=== PATIENT | female | born 2000 | race Caucasian/White ===

== ENCOUNTER 2021-02-10 08:24 | Emergency (ER) | payer OTHER, SELFPAY ==
[2021-02-10 08:29] VITALS: BP 150/107; PULSE 68; RESP 15; TEMP 36.6; O2SAT 100
--- NOTE | 2021-02-10 09:22 | ED.DENTAL ---
HPI - Dental/Oral General Chief complaint: Dental/Oral Stated complaint: dental pain Time Seen by Provider: 02/10/21 08:36 Source: patient Mode of arrival: ambulatory Limitations: no limitations History of Present Illness HPI Narrative: This is 20 year old female with history of poor dentition who presents for evaluation of right upper dental pain. She reports long standing pain to her right upper molars. She takes antibiotics intermittently but she has not ever been able to get into a dentist. Her pain worsened over the past 4 days. She denies fever or chills. She has been taking tylenol for pain. She states she is normal prescribed ibuprofen and amoxicillin. Location: Tooth # (2,3) Related Data Allergies Allergy/AdvReac Type Severity Reaction Status Date / Time No Known Allergies Allergy Verified 02/10/21 08:59 Review of Systems Review of Systems: All systems reviewed & are unremarkable except as noted in HPI and below Constitutional: Constitutional: Denies chills and Denies fever(s) ENT: Denies dysphagia and Reports mouth pain PMFSH Past Medical History Medical History (Updated 02/10/21 @ 09:34 by Kaila Cook MD) Anxiety Depression Surgical History Surgical History (Updated 02/10/21 @ 09:22 by Kaila Cook MD) No pertinent past surgical history Social History Social History (Updated 02/10/21 @ 09:23 by Kaila Cook MD) Smoking packs per day: 0.5 Smoking cigarettes per day: 10.0 Smoking status: Current every day smoker Exam Const: General: no acute distress and alert Orientation/consciousness: patient oriented x3 HENMT: Ears: external ears normal Face and sinus: sinuses nontender and face symmetric Mouth: Yes lip normal, Yes tongue normal, Yes oropharynx normal and Yes moist mucous membranes Teeth and gingiva: abnormal tooth and associated gingiva (right upper at teeth 2,3 surround gingiva erythema, no drainage, no fluctan) and poor dentition Eyes: EOM: EOMs intact bilaterally Resp: Effort & Inspection: normal respiratory effort Skin: General skin exam: normal color Rashes: no rashes Neuro: General: patient oriented x3, moves all extremities and CN's II-XI intact bilaterally Psych: Mental Status: mental status grossly normal Affect: normal affect Course Reevaluation(s) Reevaluation #1: I discussed with patient that she will can try to be seen at Dental school. She will be given dose of toradol. Date: 02/10/21 Time: 09:32 Vital Signs Vital signs: Vital Signs Temperature 97.9 F 02/10/21 08:29 Pulse Rate 68 02/10/21 08:29 Respiratory Rate 15 02/10/21 08:29 Blood Pressure 150/107 H 02/10/21 08:29 Pulse Oximetry 100 02/10/21 08:29 Temperature 97.9 F 02/10/21 08:29 Pulse Rate 68 02/10/21 08:29 Respiratory Rate 15 02/10/21 08:29 Blood Pressure 150/107 H 02/10/21 08:29 Pulse Oximetry 100 02/10/21 08:29 Discharge Plan Discharge Clinical Impression: Dental abscess, Dental caries Patient Disposition: Home, Self-Care Condition: Stable Instructions: Antibiotic Form, Dental Abscess (ED) Additional Instructions: You need to be seen by a dentist. I recommend you look into call one of the local dental schools. You can all try [facility] at [phone] to make an appointment. Prescriptions: New amoxicillin-pot clavulanate [Augmentin] 875-125 mg tablet 1 tablet PO Q12H Qty: 20 RF: 0 ibuprofen 800 mg tablet 800 mg PO Q6H PRN (Reason: pain) Qty: 10 RF: 0 Follow-up/Referrals: Solo,OLIVIA Quan [Primary Care Provider] - Stand Alone Forms: Work/School Release IP
[2021-02-10] MEDS: KETOROLAC (*BKC) 60 MG/2 ML VIAL IM (09:34)
== END 2021-02-10 09:55 | disposition home or self-care (01) ==
PROVIDERS: Emergency Provider General Practice; PCP Physician Assistant
DX: K04.7 Periapical abscess without sinus (principal); K02.9 Dental caries, unspecified; F17.210 Nicotine dependence, cigarettes, uncomplicated
CPT/HCPCS: 96372; 99283; J1885

== ENCOUNTER 2021-02-26 10:56 | Emergency (ER) | payer OTHER, SELFPAY ==
[2021-02-26] VITALS (11 sets, daily range): BP systolic 100–134; BP diastolic 52–91; PULSE 60–96; RESP 12–18; TEMP 36.1; O2SAT 97–100
--- NOTE | ~2021-02-26 | XR_ITS ---
EXAMINATION: XR knee RT 3V DATE: 02/26/2021 11:55 INDICATION: Right knee pain TECHNIQUE: Three views of the right knee were obtained. COMPARISON: None. FINDINGS: Alignment is normal. No fracture or osteochondral lesion. Joint spaces are normal with no e rosions. No joint effusion/synovitis. Soft tissues are unremarkable. IMPRESSION: 1. No acute osseous abnormality. Reviewed, dictated and finalized at location A.
--- NOTE | 2021-02-26 11:35 | ED.LOWEXIN ---
HPI - Extremity Injury (Lower) General Chief Complaint: Extremity Injury, Lower Stated Complaint: right knee pain Time Seen by Provider: 02/26/21 11:06 History of Present Illness HPI Narrative: Chronic right knee pain worsened after a fall on roller skates a couple of days ago. She reports circumferential pain from the tibial tuberosity to the top of the patella. She reports that she had an MRI about 1 year ago that showed something was torn. She was supposed to get knee injection. She never followed up. She has pain with movement and bearing weight. Related Data Home Medications Medication Instructions Recorded Confirmed Zoloft 02/26/21 albuterol mcg INHALATION 02/26/21 epinephrine [Epi E-Z Pen] 0.3 mg IM Q5-15M PRN 02/26/21 lithium carbonate 02/26/21 Allergies Allergy/AdvReac Type Severity Reaction Status Date / Time No Known Allergies Allergy Verified 02/26/21 11:03 Review of Systems Review of Systems: All systems reviewed & are unremarkable except as noted in HPI and below Constitutional: Constitutional: Denies fever(s) and Denies weakness ENT: Reports system reviewed and no additional complaints, except as documented Cardiovascular: Cardiovascular: Reports no additional cardiovascular complaints Respiratory: Respiratory: Reports no additional respiratory complaints Musculoskeletal: Musculoskeletal: Denies back pain Neurologic: Denies numbness and Denies weakness [facility] Past Medical History Medical History Anxiety Depression Surgical History Surgical History No pertinent past surgical history Social History Social History Smoking packs per day: 0.5 Smoking cigarettes per day: 10.0 Smoking status: Current every day smoker Gender identity (if verbalized by the patient): Female Exam Const: General: no acute distress and alert Orientation/consciousness: patient oriented x3 HENMT: Head: normal to inspection Neck: Neck: normal visual inspection Resp: Effort & Inspection: normal respiratory effort Cardio: Other: 2 + right popliteal and DP pulses Skin: General skin exam: normal color Rashes: no rashes Wounds: no wounds Neuro: General: patient oriented x3, moves all extremities and no focal motor deficits Speech: normal speech Gait exam (Neuro): Normal gait present Extrem: Other: circumferential joint line tenderness Course Vital Signs Vital signs: Vital Signs Temperature 36.1 C L 02/26/21 11:01 Pulse Rate 96 02/26/21 11:01 Respiratory Rate 18 02/26/21 11:01 Blood Pressure 132/91 H 02/26/21 11:01 Pulse Oximetry 97 02/26/21 11:01 Temperature 36.1 C L 02/26/21 11:01 Pulse Rate 96 02/26/21 11:01 Respiratory Rate 18 02/26/21 11:01 Blood Pressure 132/91 H 02/26/21 11:01 Pulse Oximetry 97 02/26/21 11:01 MDM - Extremity Injury (Lower) MDM Narrative Medical decision making narrative: Chronic pain. It sounds like she may have had a torn meniscus. Negative x-ray. I will try nonnarcotic pain control. Differential Diagnosis Differential diagnosis: Likely acute internal derangement of knee Medical Records Attestation: I reviewed the patient's medical records. Imaging Data Radiologist's impression: ITS Impressions Knee X-Ray 02/26/21 11:59 IMPRESSION: 1. No acute osseous abnormality. Discharge Plan Discharge Clinical Impression: Knee pain, right Qualifiers: Chronicity: unspecified Qualified Code(s): M25.561 - Pain in right knee Patient Disposition: Home, Self-Care Condition: Stable Instructions: Knee Pain (ED) Prescriptions: New naproxen 500 mg tablet 500 mg PO BID PRN (Reason: pain) Qty: 60 RF: 0 No Action albuterol 90 mcg/actuation Aerosol INHALATION RF: 0 epinephrine [Epi E-Z Pen] 0.3 mg/0.3 mL Auto-Injector
[2021-02-26] MEDS: KETOROLAC (*BKC) 60 MG/2 ML VIAL IM (13:11)
== END 2021-02-26 13:26 | disposition home or self-care (01) ==
PROVIDERS: Emergency Provider Emergency Medicine; PCP Physician Assistant
DX: M25.561 Pain in right knee (principal); F41.9 Anxiety disorder, unspecified; F32.9 Major depressive disorder, single episode, unspecified; F17.210 Nicotine dependence, cigarettes, uncomplicated; V00.121A Fall from non-in-line roller-skates, initial encounter; Y93.51 Activity, roller skating (inline) and skateboarding
CPT/HCPCS: 73562; 96372; 99283; J1885

== ENCOUNTER 2021-03-08 11:27 | Emergency (ER) | payer OTHER, SELFPAY ==
[2021-03-08 12:01] VITALS: BP 139/88; PULSE 88; RESP 16; TEMP 36.4; O2SAT 100
--- NOTE | 2021-03-08 12:36 | ED.GENADULT ---
HPI - General Adult General Chief complaint: Dental/Oral Stated complaint: My tooth Time Seen by Provider: 03/08/21 12:34 History of Present Illness HPI narrative: left upper dental pain x 2 days. Sensitivity to cold. no fevers or trouble swallowing or any other sxs. Admits to previous hx of similar sxs due to dental infection. Has an appt to see dentist next week. Denies any possibility of Related Data Home Medications Medication Instructions Recorded Confirmed Zoloft 02/26/21 albuterol mcg INHALATION 02/26/21 epinephrine [Epi E-Z Pen] 0.3 mg IM Q5-15M PRN 02/26/21 lithium carbonate 02/26/21 Allergies Allergy/AdvReac Type Severity Reaction Status Date / Time cat dander Allergy Unknown Verified 03/08/21 12:01 SEAFOOD Allergy Unknown Uncoded 03/08/21 12:01 Review of Systems Constitutional: Constitutional: Reports as per HPI, Denies fever(s), Denies night sweats and Denies weakness ENT: Comments: See HPI for dental pain Cardiovascular: Cardiovascular: Denies chest pain, Denies edema, Denies leg edema, Denies dyspnea and Denies orthopnea Respiratory: Respiratory: Denies cough and Denies dyspnea Gastrointestinal: Gastrointestinal: Denies abdominal pain, Denies constipation, Denies diarrhea, Denies nausea and Denies vomiting Musculoskeletal: Musculoskeletal: Denies abnormal gait, Denies back pain, Denies numbness and Denies tingling Neurologic: Denies Abnormal speech present, Denies abnormal gait, Denies numbness, Denies tingling and Denies weakness Psychiatric: Psychiatric: Denies homicidal ideation and Denies suicidal ideation [facility] Past Medical History Medical History Anxiety Depression Surgical History Surgical History No pertinent past surgical history Social History Social History Smoking packs per day: 0.5 Smoking cigarettes per day: 10.0 Smoking status: Current every day smoker Gender identity (if verbalized by the patient): Female Exam Const: General: cooperative, healthy appearing, comfortable, no acute distress, well developed, alert, awake and Physically active Orientation/consciousness: patient oriented x3 HENMT: Head: normal to inspection, normocephalic and atraumatic Ears: external ears normal General nose exam: Normal external nose present Teeth image: 1. Dental caries of teeth 1, 2 and 3. Surrounding gingiva is slightly edematous and TTP without any appreciable abscess Eyes: Pupils: Equal, round and reactive pupils present EOM: EOMs intact bilaterally Neck: Neck: normal visual inspection Chest: Chest palpation & inspection: normal inspection of the chest and no tenderness Resp: Effort & Inspection: normal respiratory effort and able to speak in complete sentences Auscultation: clear to auscultation bilaterally Cardio: Rate: regular rate Rhythm: regular rhythm GI: Inspection: normal to inspection GI Palp: No abdominal tenderness : General: Yes no CVA tenderness Back/Spine/Pelvis: Back: no CVA tenderness Skin: General skin exam: normal color and no rashes or lesions noted Lesions: no lesions Neuro: General: patient oriented x3, no focal motor deficits and CN's II-XI intact bilaterally Cranial nerves: Yes Equal, round and reactive pupils present Speech: No Abnormal speech present Extrem: General: normal to inspection and full ROM Psych: Appearance: grossly normal and well kempt Mental Status: mental status grossly normal Speech and movement: Normal speech and movement present Affect: normal affect Thought process: Normal thought process present Course Vital Signs Vital signs: Vital Signs Temperature 36.4 C L 03/08/21 12:01 Pulse Rate 88 03/08/21 12:01 Respiratory Rate 16 03/08/21 12:01 Blood Pressure 139/88 03/08/21 12:01 Pulse Oximetry 100
--- NOTE | 2021-03-08 12:55 | PC.NURSE ---
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 PA informed states he will be in shortly.
--- NOTE | 2021-03-08 13:05 | PC.NURSE ---
OLIVIA [place] at bedside.
[2021-03-08] MEDS: KETOROLAC 30 MG/ML VIAL (*BKC) IM (13:14)
--- NOTE | 2021-03-08 13:15 | PC.NURSE ---
Pt medicated per provider order, verbalized understanding, awaiting d/c.
[2021-03-08 13:20] VITALS: BP 118/75; PULSE 72; RESP 15; O2SAT 100
== END 2021-03-08 13:20 | disposition home or self-care (01) ==
PROVIDERS: Emergency Provider Emergency Medicine; PCP Physician Assistant
DX: K04.7 Periapical abscess without sinus (principal); K02.9 Dental caries, unspecified; F41.9 Anxiety disorder, unspecified; F32.9 Major depressive disorder, single episode, unspecified; F17.210 Nicotine dependence, cigarettes, uncomplicated
CPT/HCPCS: 96372; 99283; J1885

== ENCOUNTER 2021-03-16 23:41 | Emergency (ER) | payer OTHER, SELFPAY ==
[2021-03-16 23:51] VITALS: BP 139/108; PULSE 94; RESP 18; TEMP 36.8; O2SAT 97
[2021-03-17] MEDS: methylPREDNISolone SOD SUCC 125 MG VIAL IV PUSH (00:11)
[2021-03-17] MEDS: FAMOTIDINE 20 MG/2 ML VIAL IV PUSH (00:11)
[2021-03-17 00:16] VITALS: BP 138/86; PULSE 86; RESP 17; O2SAT 98
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
[2021-03-17 00:52] VITALS: BP 128/76; PULSE 76; RESP 16; O2SAT 98
[2021-03-17 01:05] VITALS: PULSE 76; RESP 18; O2SAT 100
== END 2021-03-17 01:08 | disposition home or self-care (01) ==
PROVIDERS: Emergency Provider Emergency Medicine; PCP Physician Assistant
DX: T78.40XA Allergy, unspecified, initial encounter (principal); F41.9 Anxiety disorder, unspecified; F32.9 Major depressive disorder, single episode, unspecified; F17.210 Nicotine dependence, cigarettes, uncomplicated; Z91.013 Allergy to seafood
CPT/HCPCS: 96374; 96375; 99284; J2930

== ENCOUNTER 2021-04-13 17:01 | Emergency (ER) | payer OTHER, SELFPAY ==
[2021-04-13 17:03] VITALS: BP 140/102; PULSE 90; RESP 18; TEMP 36.6; O2SAT 100
--- NOTE | 2021-04-13 17:32 | ED.DENTAL ---
HPI - Dental/Oral General Chief complaint: Dental/Oral Stated complaint: TOOTHACHE Time Seen by Provider: 04/13/21 17:12 Source: patient Mode of arrival: ambulatory Limitations: no limitations History of Present Illness HPI Narrative: Patient is a 20 year old female who presents complaining of right upper dental pain x 1 day. She has been seen for same in the past. She reports pain started earlier today. She reports taking ibuprofen without relief. She reports that she has appointment with dentist for extraction next week. She denies other complaints at this time. MD Complaint: tooth pain Related Data Home Medications Medication Instructions Recorded Confirmed Zoloft 02/26/21 albuterol mcg INHALATION 02/26/21 epinephrine [Epi E-Z Pen] 0.3 mg IM Q5-15M PRN 02/26/21 lithium carbonate 02/26/21 Allergies Allergy/AdvReac Type Severity Reaction Status Date / Time cat dander Allergy Unknown Verified 04/13/21 17:06 pork derived (porcine) Allergy Rash Verified 04/13/21 17:06 SEAFOOD Allergy Unknown Uncoded 03/08/21 12:01 Review of Systems Review of Systems: Narrative: CONSTITUTIONAL: Denies fever, chills, or sweats. EYES: Denies visual changes, redness, or discharge. ENT: Denies rhinorrhea, congestion, sore throat, or otalgia. Reports right upper dental pain CARDIOVASCULAR: Denies chest pain, palpitations, or edema. RESPIRATORY: Denies cough or dyspnea. GASTROINTESTINAL: Denies abdominal pain, nausea, vomiting, or diarrhea. GENITOURINARY: Denies dysuria or hematuria. SKIN: Denies rash or itching. MUSCULOSKELETAL: Denies back pain, joint pain, or myalgia. NEUROLOGIC: Denies headache, numbness, dizziness, or weakness. PSYCHIATRIC: Denies anxiety or depression. [facility] Past Medical History Medical History Anxiety Depression Surgical History Surgical History No pertinent past surgical history Social History Social History (Updated 04/13/21 @ 17:35 by SUNIL Gillil[place]) Smoking packs per day: 0.5 Smoking cigarettes per day: 10.0 Smoking status: Current every day smoker Alcohol intake: never Substance use: never Gender identity (if verbalized by the patient): Female Comments At the time of signature, I have reviewed and agree with nursing past medical, surgical, social, and family history unless otherwise noted. Please see nursing chart for further information. There is no relevant family history pertinent to the presenting complaint. Exam Narrative: Exam Narrative: GENERAL: Well-appearing, well-nourished, and in no acute distress. HEAD: Normocephalic, atraumatic. EYES: EOMI. No redness or drainage. Conjunctiva are normal. ENT: Mucous membranes pink and moist. Dental caries to teeth 1, 2 and 3. Gingiva mildly edematous, no visible abscess. NECK: AROM. Supple. No lymphadenopathy. CHEST: No respiratory distress. HEART: Regular rate and rhythm. EXTREMITIES: Normal range of motion. No edema. SKIN: Warm, dry, no rash. NEURO: No focal deficits. Alert and oriented x3. Gait steady. PSYCH: Normal affect. No signs of depression or anxiety. Course Vital Signs Vital signs: Vital Signs Temperature 36.6 C 04/13/21 17:03 Pulse Rate 90 04/13/21 17:03 Respiratory Rate 18 04/13/21 17:03 Blood Pressure 140/102 H 04/13/21 17:03 Pulse Oximetry 100 04/13/21 17:03 Temperature 36.6 C 04/13/21 17:03 Pulse Rate 90 04/13/21 17:03 Respiratory Rate 18 04/13/21 17:03 Blood Pressure 140/102 H 04/13/21 17:03 Pulse Oximetry 100 04/13/21 17:03 Reviewed-patient is informed that they may have pre-hypertension or hypertension based on a blood pressure reading. I recommend the patient call the primary care provider listed on their discharge instructions or a physician of their choice this week to arrange follow-up for further evaluation of possible pre-hypertension or h
[2021-04-13] MEDS: HYDROcodone/acetaminophen (*CRX) 5-325 MG TABLET 1 TAB PO (17:36)
[2021-04-13] MEDS: AMOXICILLIN/CLAVULANATE K 875-125 MG TAB 1 TABLET PO (17:50)
== END 2021-04-13 17:50 | disposition home or self-care (01) ==
PROVIDERS: Emergency Provider Nurse Practitioner; PCP Physician Assistant
DX: K04.7 Periapical abscess without sinus (principal); K02.9 Dental caries, unspecified; F41.9 Anxiety disorder, unspecified; F32.9 Major depressive disorder, single episode, unspecified; F17.210 Nicotine dependence, cigarettes, uncomplicated; R03.0 Elevated blood-pressure reading, without diagnosis of hypertension
CPT/HCPCS: 99283; A9270

== ENCOUNTER 2021-06-07 02:36 | Emergency (ER) | payer OTHER, SELFPAY ==
--- NOTE | ~2021-06-07 | XR_ITS ---
XR knee RT min 4V DATE: 06/07/2021 03:10 INDICATION: Injury. Anterior right knee pain. TECHNIQUE: [place], AP, PA and lateral views COMPARISON: 02/26/2021 right knee FINDINGS: No fracture or dislocation or joint effusion. No periosteal reaction or bone destruction. J oint spaces are well preserved. No radiopaque intra-articular loose body or chondrocalcinosis. IMPRESSION: Negative Reviewed, dictated and finalized at location A. IMPRESSION: Negative
[2021-06-07 03:13] VITALS: BP 148/78; PULSE 95; RESP 17; TEMP 36.6; O2SAT 100
[2021-06-07 04:37] VITALS: BP 148/78; PULSE 95; RESP 17; TEMP 36.6; O2SAT 100
--- NOTE | 2021-06-07 04:57 | ED.GENADULT ---
HPI - General Adult General Chief complaint: Extremity Injury, Lower Stated complaint: Knee pain Time Seen by Provider: 06/07/21 04:39 History of Present Illness HPI narrative: Patient 20-year-old female presents emerged part with chief complaint of right knee pain. Patient reports she has chronic issues with the right knee and is supposed to see physical therapy the patient has been using crutches at home and you doing light work but today at work she bumped her knee against a object. Patient states her knee has been exquisitely painful since then reports that it hurts whenever she moves it and improved with rest. Related Data Home Medications Medication Instructions Recorded Confirmed Zoloft 02/26/21 albuterol mcg INHALATION 02/26/21 epinephrine [Epi E-Z Pen] 0.3 mg IM Q5-15M PRN 02/26/21 lithium carbonate 02/26/21 Allergies Allergy/AdvReac Type Severity Reaction Status Date / Time cat dander Allergy Unknown Verified 04/13/21 17:06 pork derived (porcine) Allergy Rash Verified 04/13/21 17:06 SEAFOOD Allergy Unknown Uncoded 03/08/21 12:01 Review of Systems Review of Systems: Narrative: A 10 system review of systems was completed on the patient and is negative except for what is stated in the HPI. Nursing and ancillary documentation was reviewed. PMFSH Past Medical History Medical History Anxiety Depression Surgical History Surgical History No pertinent past surgical history Social History Social History Smoking packs per day: 0.5 Smoking cigarettes per day: 10.0 Smoking status: Current every day smoker Alcohol intake: never Substance use: never Gender identity (if verbalized by the patient): Female Exam Narrative: Exam Narrative: GENERAL: Well-appearing, well-nourished, and in no acute distress. HEAD: Normocephalic, atraumatic. EYES: PERRLA and EOMI. ENT: Nares clear, no rhinorrhea or epistaxis. Mucous membranes moist. NECK: Supple. CHEST: Clear to auscultation. No respiratory distress. HEART: Regular rate and rhythm. No murmur heard. Normal peripheral pulses. ABDOMEN: Soft, nontender, nondistended, normal active bowel sounds. EXTREMITIES: Normal range of motion. No edema. There is tenderness to palpation of the right knee SKIN: Warm, dry, no rash. NEURO: No focal deficits. Alert and oriented x3. PSYCH: Normal mood and affect. Course Course Emergency Course: Plain film x-ray showed no evidence of fracture Vital Signs Vital signs: Vital Signs Temperature 36.6 C 06/07/21 03:13 Pulse Rate 95 06/07/21 03:13 Respiratory Rate 17 06/07/21 03:13 Blood Pressure 148/78 H 06/07/21 03:13 Pulse Oximetry 100 06/07/21 03:13 Temperature 36.6 C 06/07/21 04:37 Pulse Rate 95 06/07/21 04:37 Respiratory Rate 17 06/07/21 04:37 Blood Pressure 148/78 H 06/07/21 04:37 Pulse Oximetry 100 06/07/21 04:37 Medical Decision Making Vital Signs Vital Signs: Vital Signs Temperature 36.6 C 06/07/21 03:13 Pulse Rate 95 06/07/21 03:13 Respiratory Rate 17 06/07/21 03:13 Blood Pressure 148/78 H 06/07/21 03:13 Pulse Oximetry 100 06/07/21 03:13 Temperature 36.6 C 06/07/21 04:37 Pulse Rate 95 06/07/21 04:37 Respiratory Rate 17 06/07/21 04:37 Blood Pressure 148/78 H 06/07/21 04:37 Pulse Oximetry 100 06/07/21 04:37 Discharge Plan Discharge Clinical Impression: Contusion of knee, right Qualifiers: Encounter type: initial encounter Qualified Code(s): S80.01XA - Contusion of right knee, initial encounter Patient Disposition: Home, Self-Care Condition: Stable Instructions: Antibiotic Form, Knee Pain (ED) Prescriptions: No Action albuterol 90 mcg/actuation Aerosol INHALATION RF: 0 epinephrine [Epi E-Z Pen] 0.3 mg/0.3 mL Au
--- NOTE | 2021-06-07 05:36 | PC.NURSE ---
chrissy wrap applied by danuta and reviewed by erp.
[2021-06-07 05:37] VITALS: BP 151/115; PULSE 89; RESP 16; TEMP 37.1; O2SAT 100
== END 2021-06-07 05:38 | disposition home or self-care (01) ==
PROVIDERS: Emergency Provider Emergency Medicine; PCP Physician Assistant
DX: S80.01XA Contusion of right knee, initial encounter (principal); F41.9 Anxiety disorder, unspecified; F32.9 Major depressive disorder, single episode, unspecified; F17.213 Nicotine dependence, cigarettes, with withdrawal; W22.8XXA Striking against or struck by other objects, initial encounter
CPT/HCPCS: 73564; 99283

== ENCOUNTER 2021-12-18 19:06 | Emergency (ER) | payer OTHER, SELFPAY ==
[2021-12-18 19:41] VITALS: BP 138/82; PULSE 90; RESP 16; TEMP 36.3; O2SAT 100
[2021-12-18 21:40] VITALS: BP 142/94; PULSE 84; RESP 16; O2SAT 100
--- NOTE | 2021-12-18 23:11 | PC.NURSE ---
Pt walked out of ED prior to seeing provider. Was ambulatory with steady gait, no sign of distress.
== END 2021-12-18 23:24 | disposition left against medical advice (07) ==
LOC: ANHED 23:23
PROVIDERS: PCP Physician Assistant
DX: R11.2 Nausea with vomiting, unspecified (principal)
CPT/HCPCS: 99199